=== PATIENT | female | born 1985 | race Caucasian/White ===

== ENCOUNTER → 2019-09-01 12:24 | Outpatient (CLI) | payer OTHER, SELFPAY ==
[2019-09-04 18:11] LABS: COVID19 Sendout Not Detected (Not Detected)
== END ==
PROVIDERS: Visit Provider Physician Assistant
DX: Z03.818 Encounter for observation for suspected exposure to other biological agents ruled out (principal)
CPT/HCPCS: 87635

== ENCOUNTER → 2019-09-01 12:49 | Outpatient (CLI) | payer OTHER, SELFPAY ==
[2019-09-01 15:55] LABS: Adenovirus F 40/41 Not Detected (Not Detect); Astrovirus Not Detected (Not Detect); Campylobacter Not Detected (Not Detect); Clostridium difficile toxin AB Not Detected (Not Detect); Cryptosporidium Not Detected (Not Detect); Cyclospora cayetanensis Not Detected (Not Detect); Entamoeba histolytica Not Detected (Not Detect); Enteroaggregative E.coli Not Detected (Not Detect); Enteropathogenic E.coli Not Detected (Not Detect); Enterotoxigenic E.coli It/st Not Detected (Not Detect); Giardia lamblia Not Detected (Not Detect); Norovirus GI/GII Not Detected (Not Detect); Plesiomonsa shigelloides Not Detected (Not Detect); Rotavirus A Not Detected (Not Detect); Salmonella Not Detected (Not Detect); Sapovirus Not Detected (Not Detect); Shiga-like toxin-prod E.coli Not Detected (Not Detect); Shigella/Enteroinvasive E.coli Not Detected (Not Detect); Vibrio Not Detected (Not Detect); Vibrio cholerae Not Detected (Not Detect); Yersinia enterocolitica Not Detected (Not Detect)
== END ==
PROVIDERS: Referring Provider Physician Assistant; Visit Provider Physician Assistant
DX: Z03.818 Encounter for observation for suspected exposure to other biological agents ruled out (principal); R19.7 Diarrhea, unspecified
CPT/HCPCS: 87507; 87635

== ENCOUNTER → 2019-09-08 07:45 | Outpatient (CLI) | payer OTHER, SELFPAY ==
--- NOTE | 2019-09-08 07:49 | DI.US.S_ITS ---
PROCEDURE: US ABDOMEN LIMITED INDICATIONS: EPIGASTRIC PAIN TECHNIQUE: Real-time scanning was performed of the abdominal and retroperitoneal organs, with image documentation. COMPARISON: None. FINDINGS: Liver: Liver is normal in size and homogeneous in echotexture. Gallbladder: The gallbladder appears normal without gallstones or signs of cholecystitis. Biliary ducts: Intrahepatic bile ducts are non-dilated. Extrahepatic bile duct caliber measures 5 mm. Normal is 6-7 mm or less in diameter, or 10 mm or less post-cholecystectomy. Pancreas: Visualized portions of the pancreas are sonographically normal. Spleen: Spleen is normal in size and homogeneous in echotexture. Right Kidney: A 1.5 cm simple cyst is seen in the interpolar region of the right kidney. No hydronephrosis or nephrolithiasis. IVC: Intrahepatic inferior vena cava is patent. Miscellaneous: No free fluid in the right upper quadrant. IMPRESSION: No acute abnormality is identified to account for the reported epigastric pain. No signs of cholelithiasis or cholecystitis. Simple right renal cyst measures up to 1.5 cm. Dictated by: Niall Langston M.D. on 09/08/2019 at 8:25 Approved by: Niall Langston M.D. on 09/08/2019 at 8:31
== END ==
PROVIDERS: Referring Provider Student in an Organized Health Care Education/Training Program; Visit Provider Student in an Organized Health Care Education/Training Program
DX: K21.9 Gastro-esophageal reflux disease without esophagitis (principal); R10.13 Epigastric pain; N28.1 Cyst of kidney, acquired
CPT/HCPCS: 76705

== ENCOUNTER → 2019-10-06 11:33 | Outpatient (CLI) | payer OTHER, SELFPAY ==
[2019-10-08 12:15] LABS: H. Pylori Antigen Stool Negative (Negative)
== END ==
PROVIDERS: PCP Registered Nurse Diabetes Educator; Referring Provider Physician Assistant; Visit Provider Physician Assistant
DX: K29.70 Gastritis, unspecified, without bleeding (principal)
CPT/HCPCS: 87338

== ENCOUNTER → 2020-01-25 16:27 | Outpatient (CLI) | payer OTHER, SELFPAY ==
[2020-01-25 16:50] LABS: COVID19 -Nasal RAPID Negative (Negative)
[2020-01-25 17:49] LABS: Influenza A - CEPHEID Flu A NEGATIVE (NEGATIVE); Influenza B - CEPHEID Flu B NEGATIVE (NEGATIVE)
== END ==
PROVIDERS: PCP Registered Nurse Diabetes Educator; Visit Provider Family Medicine
DX: J02.9 Acute pharyngitis, unspecified (principal); R19.7 Diarrhea, unspecified; R68.83 Chills (without fever); R05 Cough
CPT/HCPCS: 87502; 87635

== ENCOUNTER → 2020-05-20 16:05 | Outpatient (CLI) | payer OTHER, SELFPAY ==
[2020-05-20 17:05] LABS: Add Manual Diff / Slide Review NO; Basophils Absolute Auto 100 /uL (0-100); Basophils Percent Auto 0.9 % (0-2); Eosinophils Absolute Auto 400 /uL (0-450); Eosinophils Percent Auto 4.7 % (2-4); Hematocrit 40.4 % (36-46); Lymphocytes Absolute Auto 3000 /uL (1100-4500); Lymphocytes Percent Auto 32.5 % (25-40); Mean Corpuscular HGB Conc 34.6 % (30-36); Mean Corpuscular Hemoglobin 32.4 PG (26-34); Mean Corpuscular Volume 93.8 fL (80-100); Monocytes Absolute Auto 400 /uL (0-900); Monocytes Percent Auto 4.9 % (3-14); Neutrophils Absolute Auto 5200 /uL (1500-7000); Platelet Count 282 X10^3/uL (150-400); Red Blood Cell Count 4.31 X10^6/uL (4.0-5.2); Red Cell Distribution Width 12.5 % (11.6-14.8); White Blood Cell Count 9.1 X10^3/uL (4.5-11.0)
[2020-05-20 17:41] LABS: Free T4, Direct Thyroxine 1.05 ng/dL (0.78-2.19)
[2020-05-20 17:55] LABS: Thyroid Stimulating Hormone 1.41 uIU/mL (0.47-4.68)
[2020-05-21 06:37] LABS: Rubeola Measles IgG < 13.5 AU/mL (Immune >16.4); Varicella IgG Antibody 420 index (Immune >165)
[2020-05-21 09:36] LABS: Mumps Virus IgG Antibody 18.2 AU/mL (Immune >10.9)
== END ==
PROVIDERS: PCP Registered Nurse Diabetes Educator; Referring Provider Obstetrics & Gynecology; Visit Provider Obstetrics & Gynecology
DX: Z31.69 Encounter for other general counseling and advice on procreation (principal)
CPT/HCPCS: 36415; 84439; 84443; 85025; 86735; 86762; 86765; 86787

== ENCOUNTER → 2020-11-02 10:12 | Outpatient (CLI) | payer OTHER, SELFPAY ==
[2020-11-02 10:57] LABS: COVID19 -Nasal RAPID Negative (Negative)
== END ==
PROVIDERS: PCP Registered Nurse Diabetes Educator; Visit Provider Physician Assistant
DX: R05 Cough (principal); J02.9 Acute pharyngitis, unspecified; R51.9 Headache, unspecified; Z20.822 Contact with and (suspected) exposure to COVID-19
CPT/HCPCS: 87635

== ENCOUNTER → 2021-03-07 09:43 | Outpatient (CLI) | payer OTHER, SELFPAY | PROVIDERS: PCP Registered Nurse Diabetes Educator; Visit Provider Registered Nurse Diabetes Educator | DX: R30.0 Dysuria (principal) | CPT/HCPCS: 87086 ==

== ENCOUNTER → 2021-03-08 16:57 | Outpatient (CLI) | payer OTHER, SELFPAY ==
[2021-03-08 18:02] LABS: Bilirubin Urine UA NEGATIVE (NEGATIVE); Color Urine UA YELLOW; Glucose Urine UA NEGATIVE (Negative); Ketones Urine UA NEGATIVE (NEGATIVE); Leukocyte Esterase Urine UA NEGATIVE (NEGATIVE); Nitrite Urine UA NEGATIVE (Negative); Occult Blood Urine UA TRACE-LYSED (Negative); Protein Urine UA NEGATIVE (Negative); Specific Gravity Urine UA 1.015 (1.000-1.035); Urobilinogen Urine UA 0.2 E.U./dL (0.2)
[2021-03-08 18:13] LABS: Appearance Urine UA Slightly Cloudy; RBC Urine 0-1/HPF (0-5/HPF); Squamous Epithelial Cell Urine 5-10 /HPF (0-5/HPF); WBC Urine 5-10/HPF (0-5/HPF)
[2021-03-08 18:14] LABS: Amorphous Sediment Urine 1+; Bacteria Urine Moderate (10-30); Mucus Urine 1+ (Negative)
== END ==
PROVIDERS: PCP Registered Nurse Diabetes Educator; Referring Provider Registered Nurse Diabetes Educator; Visit Provider Registered Nurse Diabetes Educator
DX: N39.0 Urinary tract infection, site not specified (principal)
CPT/HCPCS: 81001; 87086

== ENCOUNTER → 2021-03-22 19:56 | Outpatient (ROUT) | payer OTHER, SELFPAY ==
[2021-03-22 20:03] LABS: Appearance Urine UA CLEAR; Bilirubin Urine UA NEGATIVE (NEGATIVE); Color Urine UA YELLOW; Glucose Urine UA TRACE g/dL (Negative); Ketones Urine UA NEGATIVE (NEGATIVE); Leukocyte Esterase Urine UA NEGATIVE (NEGATIVE); Nitrite Urine UA NEGATIVE (Negative); Occult Blood Urine UA NEGATIVE (Negative); Protein Urine UA NEGATIVE (Negative); Urobilinogen Urine UA 0.2 E.U./dL (0.2)
[2021-03-22 20:04] LABS: pH Urine UA 6.5 (4.5-8.0)
[2021-03-22 20:21] LABS: Amorphous Sediment Urine 2+; Bacteria Urine Many (>30); Culture Indicated Urine Cult Not Indicated; RBC Urine None Seen (0-5/HPF); Squamous Epithelial Cell Urine 10-30 /HPF (0-5/HPF); WBC Urine None Seen (0-5/HPF)
== END ==
PROVIDERS: PCP Registered Nurse Diabetes Educator; Visit Provider Registered Nurse Diabetes Educator
DX: R30.0 Dysuria (principal)
CPT/HCPCS: 81001; 87086

== ENCOUNTER → 2021-03-28 14:40 | Outpatient (CLI) | payer OTHER, SELFPAY ==
[2021-03-30 11:30] LABS: Chlamydia trachomatis Negative (Negative); Mycoplasma genitalium Negative (Negative); Neisseria gonorrhoeae Negative (Negative)
== END ==
PROVIDERS: PCP Registered Nurse Diabetes Educator; Visit Provider Registered Nurse Diabetes Educator
DX: N89.8 Other specified noninflammatory disorders of vagina (principal); Z11.3 Encounter for screening for infections with a predominantly sexual mode of transmission
CPT/HCPCS: 87210; 87220; 87491; 87563; 87591

== ENCOUNTER → 2021-04-18 10:44 | Outpatient (CLI) | payer OTHER, SELFPAY ==
[2021-04-18 11:39] LABS: Alanine Aminotransferase 28 IU/L (<35); Albumin 4.7 g/dL (3.5-5.0); Albumin Globulin Ratio 1.7 (1.0-2.8); Alkaline Phosphatase 49 U/L (38-126); Amylase 94 U/L (30-110); Aspartate Aminotransferase 39 IU/L (14-36); Bilirubin Total 0.6 mg/dL (0.2-1.3); Blood Urea Nitrogen 12 mg/dL (7-17); Calcium 9.3 mg/dL (8.4-10.2); Carbon Dioxide 24 mmol/L (22-32); Chloride 109 mmol/L (98-107); Estimated Glomerular Filt Rate > 60.0 mL/min (>60); Globulin 2.7 g/dL (1.7-4.1); Glucose 84 mg/dL (70-100); HEMOLYSIS 21 (0-50); Lipase 102 U/L (23-300); Potassium 3.8 mmol/L (3.4-5.1); Sodium 137 mmol/L (137-145); Total Protein 7.4 g/dL (6.3-8.2)
[2021-04-18 11:55] LABS: HCG Quantitative /Beta subunit < 2.4 mIU/mL
[2021-04-18 12:09] LABS: TSH w/ Reflex to FT4 0.85 uIU/mL (0.47-4.68)
[2021-04-18 12:24] LABS: Add Manual Diff / Slide Review NO; Basophils Absolute Auto 100 /uL (0-100); Basophils Percent Auto 0.8 % (0-2); Eosinophils Absolute Auto 300 /uL (0-450); Hematocrit 45.4 % (36-46); Hemoglobin 15.4 g/dL (12.0-16.0); Lymphocytes Absolute Auto 2400 /uL (1100-4500); Lymphocytes Percent Auto 30.8 % (25-40); Mean Corpuscular HGB Conc 33.8 % (30-36); Mean Corpuscular Hemoglobin 31.9 PG (26-34); Mean Corpuscular Volume 94.4 fL (80-100); Monocytes Absolute Auto 400 /uL (0-900); Monocytes Percent Auto 4.9 % (3-14); Neutrophils Absolute Auto 4600 /uL (1500-7000); Neutrophils Percent Auto 59.5 % (50-75); Platelet Count 305 X10^3/uL (150-400); Red Blood Cell Count 4.81 X10^6/uL (4.0-5.2); Red Cell Distribution Width 12.7 % (11.6-14.8); White Blood Cell Count 7.7 X10^3/uL (4.5-11.0)
[2021-04-18 13:08] LABS: Urine N gonorrhoeae NOT DETECTED
[2021-04-18 13:10] LABS: Urine Chlamydia NOT DETECTED
[2021-04-18 14:11] LABS: HIV 1 & 2 Ab/Ag 4th Gen Combo NEGATIVE (NEGATIVE)
[2021-04-19 06:19] LABS: HBsAg Screen Negative (Negative); Hepatitis A Antibody IgM Negative (Negative); Hepatitis B Core Antibody IgM Negative (Negative); Hepatitis C Antibody <0.1 s/co ratio (0.0-0.9); RPR Screen Non Reactive (Non Reactive)
== END ==
PROVIDERS: Family Medicine; PCP Registered Nurse Diabetes Educator; Referring Provider Registered Nurse Diabetes Educator; Visit Provider Registered Nurse Diabetes Educator
DX: R11.0 Nausea (principal); N39.0 Urinary tract infection, site not specified; Z11.3 Encounter for screening for infections with a predominantly sexual mode of transmission; R53.83 Other fatigue
CPT/HCPCS: 36415; 80053; 80074; 82150; 83690; 84443; 84702; 85025; 86592; 87389; 87491; 87591

== ENCOUNTER → 2021-04-21 15:38 | Outpatient (CLI) | payer OTHER, SELFPAY ==
[2021-04-21 16:50] LABS: Appearance Urine UA CLOUDY; Bilirubin Urine UA NEGATIVE (NEGATIVE); Color Urine UA YELLOW; Glucose Urine UA NEGATIVE (Negative); Ketones Urine UA NEGATIVE (NEGATIVE); Leukocyte Esterase Urine UA NEGATIVE (NEGATIVE); Nitrite Urine UA NEGATIVE (Negative); Occult Blood Urine UA NEGATIVE (Negative); Protein Urine UA NEGATIVE (Negative); Specific Gravity Urine UA 1.015 (1.000-1.035); Urobilinogen Urine UA 0.2 E.U./dL (0.2)
[2021-04-21 17:04] LABS: pH Urine UA 7.5 (4.5-8.0)
[2021-04-21 17:36] LABS: Amorphous Sediment Urine 3+; Bacteria Urine None Seen; Culture Indicated Urine Cult Not Indicated; RBC Urine None Seen (0-5/HPF); Squamous Epithelial Cell Urine 10-30 /HPF (0-5/HPF); WBC Urine None Seen (0-5/HPF)
[2021-04-23 08:36] LABS: Interpretation Negative (Negative)
== END ==
PROVIDERS: PCP Registered Nurse Diabetes Educator; Referring Provider Registered Nurse Diabetes Educator; Visit Provider Registered Nurse Diabetes Educator
DX: R11.0 Nausea (principal); R53.83 Other fatigue
CPT/HCPCS: 81001; 83013

== ENCOUNTER → 2021-04-26 07:49 | Outpatient (CLI) | payer OTHER, SELFPAY ==
--- NOTE | 2021-04-26 07:51 | DI.US.S_ITS ---
PROCEDURE: US ABDOMEN LIMITED INDICATIONS: ELEVATED AST; NAUSEA TECHNIQUE: Real-time focused scanning was performed of the abdomen, with image documentation. COMPARISON: [facility], , US ABDOMEN LIMITED, 09/08/2019, 8:03. FINDINGS: The liver is normal in size and echogenicity. The main portal vein measures 10 mm in diameter high-grade right 1st a stable vessel is radiology a I did not the The gallbladder appears normal without gallstones or gallbladder wall thickening. There is no pericholecystic fluid. Sonographic Antoine sign is negative. Intrahepatic and extrahepatic bile ducts are within normal limits in size. Common bile duct measures 5 mm in diameter. The visualized portions of the pancreas are within normal limits. A simple cyst is incidentally noted in the right kidney. IMPRESSION: No significant sonographic abnormality is seen in the right upper quadrant. Dictated by: Niall Langston M.D. on 04/26/2021 at 13:10 Approved by: Niall Langston M.D. on 04/26/2021 at 13:12
== END ==
PROVIDERS: PCP Registered Nurse Diabetes Educator; Referring Provider Registered Nurse Diabetes Educator; Visit Provider Registered Nurse Diabetes Educator
DX: R11.0 Nausea (principal); R74.8 Abnormal levels of other serum enzymes; N28.1 Cyst of kidney, acquired
CPT/HCPCS: 76705

== ENCOUNTER → 2021-05-12 15:13 | Outpatient (CLI) | payer OTHER, SELFPAY | PROVIDERS: PCP Registered Nurse Diabetes Educator; Visit Provider Nurse Practitioner Family | DX: R30.0 Dysuria (principal); N94.9 Unspecified condition associated with female genital organs and menstrual cycle | CPT/HCPCS: 87086; 87210 ==

== ENCOUNTER → 2021-06-06 11:35 | Outpatient (CLI) | payer OTHER, SELFPAY | PROVIDERS: PCP Registered Nurse Diabetes Educator; Visit Provider Physician Assistant | DX: R30.0 Dysuria (principal) | CPT/HCPCS: 87086; 87210 ==

== ENCOUNTER 2024-12-15 10:45 | Outpatient (RCR) | payer OTHER, SELFPAY ==
--- NOTE | 2024-06-23 16:00 | PT.OIE ---
Current Diagnoses Pelvic muscle wasting (06/23/24) Third degree perineal laceration during delivery, unspecified (06/23/24) Encounter for full-term uncomplicated delivery (06/23/24) Fecal urgency (06/23/24) Feeling of incomplete bladder emptying (06/23/24) Past Medical History (Last Reviewed 06/06/21 @ 12:21 by Florence López PA-C) Chronic migraine Diarrhea Routine screening for STI (sexually transmitted infection) Viral gastroenteritis Visit Care Team Role Provider Type Julia Gonzalez PA-C Family Provider [facility] Staff Nurse Primary Care Provider Specialty: Medical Address: [address] [place] [address], [id number] Email: Ernesto Lozano MD Attending Provider Non-Staff Referring Provider Specialty: MEDICAL RECORD CODER Address: [address] [place] [address], [id number] Email: Physical Therapy Initial Evaluation PT-OP-A Visit Information Start: 06/23/24 08:33 Freq: Status: Active Protocol: Document 06/23/24 14:30 [facility] (Rec: 06/23/24 14:48 [facility] [id number]) Out-Patient Physical Therapy Visit Information Visit Information Visit Type Initial Evaluation Visit Start Time 14:30 Visit Stop Time 15:15 Visit Number 1 PT-OP-B Current Condition Start: 06/23/24 08:33 Freq: Status: Active Protocol: Document 06/23/24 14:30 [facility] (Rec: 06/23/24 14:48 [facility] [id number]) Current Condition History of Current Condition Onset Date With childbirth 03/23/24 Current Complaints 3rd degree tear, difficulty fully voiding, bowel urgency and flattulance History of Current Condition Since giving she feels like she isn't able to fully void, she is noting frequency of voiding and its just a trickle. She notes with her bowels she has urgency and when she needs to have a bowel movement she needs to go right then. She also reports a great amount of uncontrolled flatulence During labor she had a catheter for the epidural, afterwards she could not void. 7 hours later she woke up with pressure and pain so she needed a spot catheter to void . Sidar also reports she did hemorrhage after giving but did not require a blood transfusion. She notes her stool consistency changes from diarrhea to constipation . She is no longer taking laxatives' but is taking Metamucil. She tries to drink 2 liters of water per day. She is voiding 2-3 times per night. She notes if her baby wakes her up she will then have to go. She also had BV and antibiotics really helped with that. Treatment Goals Patient/Caregiver Goals Treatment goals include improving pelvic floor strength, improving her ability to void, and decreasing bowel urgency and flattulance PT-OP-C Subjective Start: 06/23/24 08:33 Freq: Status: Active Protocol: Document 06/23/24 14:30 [facility] (Rec: 06/23/24 16:36 [facility] [id number]) Patient Questionnaires Pelvic Pain and Urgency/Frequency Patient Symptom Scale Pelvic Pain Score 14 PT-OP-I Pelvic Floor Start: 06/23/24 08:33 Freq: Status: Active Protocol: Document 06/23/24 14:30 [facility] (Rec: 06/23/24 16:36 [facility] [id number]) Pelvic Floor Assessment Urine Pelvic Floor Surgery No: 3A perineal tear with childbirth Urinary Symptoms Urge Sensation,Incomplete Emptying Bowel Bowel Surgery No: 3A perineal tear Bowel Symptoms Fecal Leakage,Uncontrolled Flatulence Other Bowel Symptoms bowel urgency with difficulty holding a bowel movement Pelvic Clock Pelvic Clock 12-3 Atrophy Pelvic Clock 3-6 Atrophy Pelvic Clock 6-9 Atrophy Pelvic Clock 9-12 Atrophy Perineal Descent Resting Present Bearing Present Contraction Ability Voluntary Contraction Weak Voluntary Relaxation Weak Manual Muscle Testing Left 2 Manual Muscle Testing Right 2 Manual Muscle Testing Anterior 2 Manual Muscle Testing Posterior 2 Muscle Endurance (Seconds) 2 Comments Pelvic Floor Comments tenderness at the left side of the perineum and tenderness over the left transverse perineal musculature, scar tissue tightness at the perineum with visible gapping PT-OP-Q Treatments Start: 06/23/24 08:33 Freq: Status: Active Protocol: Document 06/23/24 14:30 [facility] (Rec: 06/23/24 16:36 [facility] [id number]) Therapeutic Exercises Supine Exercises pelvic floor with adductor assist Side bilateral Reps/Minutes 10 reps holding 5 seconds and releasing x 10 seconds Comments HEP 1-2 time per day modified squat stretch Supine Exercise Name to work on releasing the tightness in the left Transverse perineal muscle Side bilateral Reps/Minutes hold 1-2 min PT-OP-T Assessment and Plan Start: 06/23/24 08:33 Freq: Status: Active Protocol: Document 06/23/24 14:30 [facility] (Rec: 06/24/24 13:02 [facility] [id number]) Physical Therapy Assessment Rehab Potential Rehabilitation Potential Excellent Evaluation Complexity Number of Personal Factors/Comorbidities 1-2 Number of Body Systems Impaired 3 Clinical Presentation at Evaluation Evolving Impairments Impairments Activity Tolerance,Pain,Soft Tissue Mobility,Strength,Tone Other Impairments inability to fully empty her bladder, urgency and frequency , fecal incontinence Goals 3 Impairment Decreased pelvic floor endurance Short Term Goal (STG) Sidra is able to sustain a pelvic floor contraction in supine x 10 seconds STG Duration 5 weeks Snf Goal (LTG) Sidra is able to sustain a pelvic floor contraction in sitting x 5 seconds or better LTG Duration 12 weeks 2 Impairment inabilty to fully empty the bladder with urinary and fecal urgency Short Term Goal (STG) Sidra is educated on toileting strategies to assist with fully emptying her bladder STG Duration 4 weeks Flame Hardener Goal (LTG) Sidra reports improved ability to void and she is able to increase her times between voids to 2 hours, she notes a overall decrease in fecal urgency LTG Duration 12 weeks 1 Impairment pelvic floor weakness Flame Hardener Goal (LTG) Sidra presents with improved strength of the pelvic floor by at least 1 muscle grade for improved support of her pelvic organs LTG Duration 12 weeks Assessment Summary Assessment Sidra is a 39 year old female referred to PT for pelvic floor rehab following a vaginal delivery with 3A degree perineal tear with delivery 03/23/24. Sidra reports difficulty fully voiding and both urinary as well as bowel urgency. She also reports that with bowel urgency she has noted some fecal incontinence. She also reports increased flattulance that is uncontrolled. Sidra is experiencing nocturia 2 times per night. With pelvic floor exam there is tenderness externally over the left transverse perineal muscle. There is scar tissue present at the perineum and pt presents with gapping at rest of the introitus due to scar tissue adhesion. She is weak throughout the levator ani musculature and tests 2/5 MM. She has very limited pelvic floor endurance. Sidra was started today with adductor assist for pelvic floor contraction and she tolerated this well. She is a good candidate for PT focusing on pelvic floor strengtheing, working to reduce scar tissue and encourage pts ability to pull in from the perineum as well as urge deference technique as well as toileting techniques to encourage full bladder emptying. Physical Therapy Plan Frequency and Duration Frequency of Treatment 1x/Week Duration of treatment (weeks) 12 Plan of Care Start Date 06/23/24 Plan of Care End Date 09/15/24 Therapeutic Interventions Therapeutic Interventions Home Exercise Program,Manual Therapy,Neuromuscular Re- education,Patient/Caregiver Education,Soft Tissue Mobilization,Therapeutic Exercises Modalities Biofeedback,Ultrasound Next Visit Focus/Plan Next Note Type Treatment Note Next Visit Plan begin US over the perineum and scar tissue and transverse perineum on the left, begin gentle scar tissue mobilization, EMG biofeedback for pelvic floor strength and endurance training
--- NOTE | 2024-07-07 17:33 | PT.OTN ---
Current Diagnoses Pelvic muscle wasting (07/07/24) Third degree perineal laceration during delivery, unspecified (07/07/24) Encounter for full-term uncomplicated delivery (07/07/24) Fecal urgency (07/07/24) Feeling of incomplete bladder emptying (07/07/24) Physical Therapy Treatment Note PT-OP-A Visit Information Start: 06/23/24 08:33 Freq: Status: Active Protocol: Document 07/07/24 13:49 [facility] (Rec: 07/07/24 13:56 [facility] [id number]) Out-Patient Physical Therapy Visit Information Visit Information Visit Type Treatment Note Visit Start Time 13:45 Visit Stop Time 14:30 Visit Number 2 PT-OP-B Current Condition Start: 06/23/24 08:33 Freq: Status: Active Protocol: Document 06/23/24 14:30 [facility] (Rec: 06/23/24 14:48 [facility] [id number]) Current Condition History of Current Condition Onset Date With childbirth 03/23/24 Current Complaints 3rd degree tear, difficulty fully voiding, bowel urgency and flattulance History of Current Condition Since giving she feels like she isn't able to fully void, she is noting frequency of voiding and its just a trickle. She notes with her bowels she has urgency and when she needs to have a bowel movement she needs to go right then. She also reports a great amount of uncontrolled flatulence During labor she had a catheter for the epidural, afterwards she could not void. 7 hours later she woke up with pressure and pain so she needed a spot catheter to void . Sidra also reports she did hemorrhage after giving but did not require a blood transfusion. She notes her stool consistency changes from diarrhea to constipation . She is no longer taking laxatives' but is taking Metamucil. She tries to drink 2 liters of water per day. She is voiding 2-3 times per night. She notes if her baby wakes her up she will then have to go. She also had BV and antibiotics really helped with that. Treatment Goals Patient/Caregiver Goals Treatment goals include improving pelvic floor strength, improving her ability to void, and decreasing bowel urgency and flattulance PT-OP-C Subjective Start: 06/23/24 08:33 Freq: Status: Active Protocol: Document 07/07/24 13:49 [facility] (Rec: 07/07/24 13:56 [facility] [id number]) OP-PT Subjective Patient Comments Patient Comments pt feels that she isn't fully emptying and it really bothers her. PT-OP-I Pelvic Floor Start: 06/23/24 08:33 Freq: Status: Active Protocol: Document 06/23/24 14:30 [facility] (Rec: 06/23/24 16:36 [facility] [id number]) Pelvic Floor Assessment Urine Pelvic Floor Surgery No: 3A perineal tear with childbirth Urinary Symptoms Urge Sensation,Incomplete Emptying Bowel Bowel Surgery No: 3A perineal tear Bowel Symptoms Fecal Leakage,Uncontrolled Flatulence Other Bowel Symptoms bowel urgency with difficulty holding a bowel movement Pelvic Clock Pelvic Clock 12-3 Atrophy Pelvic Clock 3-6 Atrophy Pelvic Clock 6-9 Atrophy Pelvic Clock 9-12 Atrophy Perineal Descent Resting Present Bearing Present Contraction Ability Voluntary Contraction Weak Voluntary Relaxation Weak Manual Muscle Testing Left 2 Manual Muscle Testing Right 2 Manual Muscle Testing Anterior 2 Manual Muscle Testing Posterior 2 Muscle Endurance (Seconds) 2 Comments Pelvic Floor Comments tenderness at the left side of the perineum and tenderness over the left transverse perineal musculature, scar tissue tightness at the perineum with visible gapping PT-OP-Q Treatments Start: 06/23/24 08:33 Freq: Status: Active Protocol: Document 07/07/24 14:09 [facility] (Rec: 07/07/24 14:31 [facility] [id number]) Therapeutic Exercises Supine Exercises pelvic floor isolations Reps/Minutes 10 reps Comments 6.8 and 24.6 pelvic floor with adductor assist Reps/Minutes 10 reps holding 10 seconds and relaxing 10 sec Comments 10.7 and max of 26.6 uv PT-OP-R Modalities Start: 06/23/24 08:33 Freq: Status: Active Protocol: Document 07/07/24 17:27 [facility] (Rec: 07/07/24 17:29 [facility] [id number]) Ultrasound Therapy Treatment over the perineum and left transverse perineum Patient Position Supine Coupling Medium Ultrasound Gel Applicator Size (cm2) 2 Frequency Setting (mHz) 1 Mode Setting Continuous Duty Cycle 100% Intensity Setting (w/cm2) 1.3 Comments good tolerance for ultrasound PT-OP-T Assessment and Plan Start: 06/23/24 08:33 Freq: Status: Active Protocol: Document 07/07/24 13:45 [facility] (Rec: 07/07/24 17:32 [facility] [id number]) Physical Therapy Assessment Assessment Summary Assessment I started Sidra today with ultrasound over the perineum and transverse perineum and worked on scar tissue, EMG biofeedback was initiated working on pelvic floor endurance contractions and isolations. SHe does better with adductor assist but was able to isolate some today. She is concerned regarding her voiding as she feels she is not voiding all the way and this creates urgency. We will introduce the urge deference technique next visit and I feel this will improve as pelvic floor strength improves. Physical Therapy Plan Frequency and Duration Frequency of Treatment 1x/Week Duration of treatment (weeks) 12 Plan of Care Start Date 06/23/24 Plan of Care End Date 09/15/24 Therapeutic Interventions Therapeutic Interventions Home Exercise Program,Manual Therapy,Neuromuscular Re- education,Patient/Caregiver Education,Soft Tissue Mobilization,Therapeutic Exercises Modalities Biofeedback,Ultrasound Next Visit Focus/Plan Next Note Type Treatment Note Next Visit Plan check in with how Sidra did with ultrasound, teach urge deference technique, continue with pelvic floor endurance training
--- NOTE | 2024-07-14 09:17 | PT.OTN ---
Current Diagnoses Pelvic muscle wasting (07/14/24) Third degree perineal laceration during delivery, unspecified (07/14/24) Encounter for full-term uncomplicated delivery (07/14/24) Fecal urgency (07/14/24) Feeling of incomplete bladder emptying (07/14/24) Physical Therapy Treatment Note PT-OP-A Visit Information Start: 06/23/24 08:33 Freq: Status: Active Protocol: Document 07/14/24 08:14 [facility] (Rec: 07/14/24 08:25 [facility] [id number]) Out-Patient Physical Therapy Visit Information Visit Information Visit Type Treatment Note Visit Start Time 08:15 Visit Stop Time 09:00 Visit Number 3 PT-OP-B Current Condition Start: 06/23/24 08:33 Freq: Status: Active Protocol: Document 06/23/24 14:30 [facility] (Rec: 06/23/24 14:48 [facility] [id number]) Current Condition History of Current Condition Onset Date With childbirth 03/23/24 Current Complaints 3rd degree tear, difficulty fully voiding, bowel urgency and flattulance History of Current Condition Since giving she feels like she isn't able to fully void, she is noting frequency of voiding and its just a trickle. She notes with her bowels she has urgency and when she needs to have a bowel movement she needs to go right then. She also reports a great amount of uncontrolled flatulence During labor she had a catheter for the epidural, afterwards she could not void. 7 hours later she woke up with pressure and pain so she needed a spot catheter to void . Sidra also reports she did hemorrhage after giving but did not require a blood transfusion. She notes her stool consistency changes from diarrhea to constipation . She is no longer taking laxatives' but is taking Metamucil. She tries to drink 2 liters of water per day. She is voiding 2-3 times per night. She notes if her baby wakes her up she will then have to go. She also had BV and antibiotics really helped with that. Treatment Goals Patient/Caregiver Goals Treatment goals include improving pelvic floor strength, improving her ability to void, and decreasing bowel urgency and flattulance PT-OP-C Subjective Start: 06/23/24 08:33 Freq: Status: Active Protocol: Document 07/14/24 08:14 [facility] (Rec: 07/14/24 08:25 [facility] [id number]) OP-PT Subjective Patient Comments Patient Comments pt notes she had a bad night with her bladder, she woke up at midnight and then again at 3 and then at 5, pt notes before that it did feel alittle better, she has also been constipated the past 2 days PT-OP-I Pelvic Floor Start: 06/23/24 08:33 Freq: Status: Active Protocol: Document 06/23/24 14:30 [facility] (Rec: 06/23/24 16:36 [facility] [id number]) Pelvic Floor Assessment Urine Pelvic Floor Surgery No: 3A perineal tear with childbirth Urinary Symptoms Urge Sensation,Incomplete Emptying Bowel Bowel Surgery No: 3A perineal tear Bowel Symptoms Fecal Leakage,Uncontrolled Flatulence Other Bowel Symptoms bowel urgency with difficulty holding a bowel movement Pelvic Clock Pelvic Clock 12-3 Atrophy Pelvic Clock 3-6 Atrophy Pelvic Clock 6-9 Atrophy Pelvic Clock 9-12 Atrophy Perineal Descent Resting Present Bearing Present Contraction Ability Voluntary Contraction Weak Voluntary Relaxation Weak Manual Muscle Testing Left 2 Manual Muscle Testing Right 2 Manual Muscle Testing Anterior 2 Manual Muscle Testing Posterior 2 Muscle Endurance (Seconds) 2 Comments Pelvic Floor Comments tenderness at the left side of the perineum and tenderness over the left transverse perineal musculature, scar tissue tightness at the perineum with visible gapping PT-OP-Q Treatments Start: 06/23/24 08:33 Freq: Status: Active Protocol: Document 07/14/24 08:14 [facility] (Rec: 07/14/24 08:25 [facility] [id number]) Therapeutic Exercises Supine Exercises hooklying clam shell with resistance Reps/Minutes x 10 reps holding 5 seconds pelvic floor isolations Reps/Minutes 10 reps Comments 13.3 uv average and max 38.1 pelvic floor with adductor assist Reps/Minutes 10 reps holding 10 seconds and relaxing 10 sec Comments 12.6 and 53.6 max modified squat stretch Supine Exercise Name to work on releasing the tightness in the left Transverse perineal muscle Side bilateral Reps/Minutes hold 1-2 min Other Exercises sit to stand with pelvic floor engagement Reps/Minutes pt to work on each time she goes from sitting to standing Comments difficult to hinge from the hips PT-OP-R Modalities Start: 06/23/24 08:33 Freq: Status: Active Protocol: Document 07/14/24 08:15 [facility] (Rec: 07/14/24 09:16 [facility] [id number]) Ultrasound Therapy Treatment over the perineum and left transverse perineum Patient Position Supine Coupling Medium Ultrasound Gel Applicator Size (cm2) 2 Frequency Setting (mHz) 1 Mode Setting Continuous Duty Cycle 100% Intensity Setting (w/cm2) 1.3 Comments good tolerance for ultrasound PT-OP-T Assessment and Plan Start: 06/23/24 08:33 Freq: Status: Active Protocol: Document 07/14/24 08:15 [facility] (Rec: 07/14/24 09:16 [facility] [id number]) Physical Therapy Assessment Rehab Potential Rehabilitation Potential Excellent Impairments Impairments Activity Tolerance,Pain,Soft Tissue Mobility,Strength,Tone Other Impairments inability to fully empty her bladder, urgency and frequency , fecal incontinence Goals 3 Impairment Decreased pelvic floor endurance Short Term Goal (STG) Sidra is able to sustain a pelvic floor contraction in supine x 10 seconds STG Duration 5 weeks [facility] Care Goal (LTG) Sidra is able to sustain a pelvic floor contraction in sitting x 5 seconds or better LTG Duration 12 weeks 2 Impairment inabilty to fully empty the bladder with urinary and fecal urgency Short Term Goal (STG) Sidra is educated on toileting strategies to assist with fully emptying her bladder STG Duration 4 weeks [facility] Care Goal (LTG) Sidra reports improved ability to void and she is able to increase her times between voids to 2 hours, she notes a overall decrease in fecal urgency LTG Duration 12 weeks 1 Impairment pelvic floor weakness Senior Care Goal (LTG) Sidra presents with improved strength of the pelvic floor by at least 1 muscle grade for improved support of her pelvic organs LTG Duration 12 weeks Assessment Summary Assessment Sidra did better this visit with pelvic floor recruitment and endurance, her average increased from 6 to 12 uv average She mentions she is still feeling the urgency especially at night and is seeing her obgyn today for possible estrogen cream, I did educate her on urge deference technique and bladder retraining today She mentions her hips feel weak and I did start her with hip ER with theraband and sit- stand with pelvic floor engagement. She has difficulty with hip hinge so more time needs to be spent on squat form Physical Therapy Plan Frequency and Duration Frequency of Treatment 1x/Week Duration of treatment (weeks) 12 Plan of Care Start Date 06/23/24 Plan of Care End Date 09/15/24 Therapeutic Interventions Therapeutic Interventions Home Exercise Program,Manual Therapy,Neuromuscular Re- education,Patient/Caregiver Education,Soft Tissue Mobilization,Therapeutic Exercises Modalities Biofeedback,Ultrasound Next Visit Focus/Plan Next Note Type Treatment Note Next Visit Plan review squat form and how pt is doing with sit to stand, continue with pelvic floor strength and endurance training
--- NOTE | 2024-07-30 10:59 | PT.OTN ---
Current Diagnoses Pelvic muscle wasting (07/30/24) Third degree perineal laceration during delivery, unspecified (07/30/24) Encounter for full-term uncomplicated delivery (07/30/24) Fecal urgency (07/30/24) Feeling of incomplete bladder emptying (07/30/24) Physical Therapy Treatment Note PT-OP-A Visit Information Start: 06/23/24 08:33 Freq: Status: Active Protocol: Document 07/30/24 09:45 [facility] (Rec: 07/30/24 10:46 [facility] [id number]) Out-Patient Physical Therapy Visit Information Visit Information Visit Type Progress Note Visit Start Time 09:45 Visit Stop Time 10:30 Visit Number 4 PT-OP-B Current Condition Start: 06/23/24 08:33 Freq: Status: Active Protocol: Document 06/23/24 14:30 [facility] (Rec: 06/23/24 14:48 [facility] [id number]) Current Condition History of Current Condition Onset Date With childbirth 03/23/24 Current Complaints 3rd degree tear, difficulty fully voiding, bowel urgency and flattulance History of Current Since giving she feels like she isn't able to Condition fully void, she is noting frequency of voiding and its just a trickle. She notes with her bowels she has urgency and when she needs to have a bowel movement she needs to go right then. She also reports a great amount of uncontrolled flatulence During labor she had a catheter for the epidural, afterwards she could not void. 7 hours later she woke up with pressure and pain so she needed a spot catheter to void. Sidra also reports she did hemorrhage after giving but did not require a blood transfusion. She notes her stool consistency changes from diarrhea to constipation. She is no longer taking laxatives' but is taking Metamucil. She tries to drink 2 liters of water per day. She is voiding 2-3 times per night. She notes if her baby wakes her up she will then have to go. She also had BV and antibiotics really helped with that. Treatment Goals Patient/Caregiver Treatment goals include improving pelvic floor strength Goals , improving her ability to void, and decreasing bowel urgency and flattulance PT-OP-C Subjective Start: 06/23/24 08:33 Freq: Status: Active Protocol: Document 07/30/24 09:48 [facility] (Rec: 07/30/24 10:41 [facility] [id number]) OP-PT Subjective Patient Comments Patient Comments pt notes urgency is not as bad, she had her cycle and she is not having as much of the irritation with her bladder PT-OP-I Pelvic Floor Start: 06/23/24 08:33 Freq: Status: Active Protocol: Document 06/23/24 14:30 [facility] (Rec: 06/23/24 16:36 [facility] [id number]) Pelvic Floor Assessment Urine Pelvic Floor Surgery No: 3A perineal tear with childbirth Urinary Symptoms Urge Sensation,Incomplete Emptying Bowel Bowel Surgery No: 3A perineal tear Bowel Symptoms Fecal Leakage,Uncontrolled Flatulence Other Bowel Symptoms bowel urgency with difficulty holding a bowel movement Pelvic Clock Pelvic Clock 12-3 Atrophy Pelvic Clock 3-6 Atrophy Pelvic Clock 6-9 Atrophy Pelvic Clock 9-12 Atrophy Perineal Descent Resting Present Bearing Present Contraction Ability Voluntary Weak Contraction Voluntary Relaxation Weak Manual Muscle 2 Testing Left Manual Muscle 2 Testing Right Manual Muscle 2 Testing Anterior Manual Muscle 2 Testing Posterior Muscle Endurance ( 2 Seconds) Comments Pelvic Floor tenderness at the left side of the perineum and Comments tenderness over the left transverse perineal musculature, scar tissue tightness at the perineum with visible gapping PT-OP-Q Treatments Start: 06/23/24 08:33 Freq: Status: Active Protocol: Document 07/30/24 09:48 [facility] (Rec: 07/30/24 10:41 [facility] [id number]) Therapeutic Exercises Other Exercises cat cow Reps/Minutes 10 reps quaduped TA Reps/Minutes x 10 reps Comments exhale sit to stand with pelvic floor engagement Other Exercise Name time spent cueing sitting on sitting bones Reps/Minutes x 5 reps with cues to hinge at hips Comments pt tends to sit tucked under in a posterior pelvic tilt Manual Therapy Treatment Consent Patient gave verbal Yes consent for manual treatment Soft Tissue Mobilization MFR over the TPM and attachments to the ischium Body Location left side Mobilization Type Myofascial Release Comments worked on release of the right TPM and attachments to the ischium following ultrasound. Sidra could tell that this loosened with treatment. PT-OP-R Modalities Start: 06/23/24 08:33 Freq: Status: Active Protocol: Document 07/30/24 09:45 [facility] (Rec: 07/30/24 10:51 [facility] [id number]) Ultrasound Therapy Treatment over the perineum and left transverse perineum Patient Position Supine Coupling Medium Ultrasound Gel Applicator Size (cm2 2 ) Frequency Setting ( 1 mHz) Mode Setting Continuous Duty Cycle 100% Intensity Setting (w 1.3 /cm2) Comments good tolerance for ultrasound x 8 min PT-OP-T Assessment and Plan Start: 06/23/24 08:33 Freq: Status: Active Protocol: Document 07/30/24 09:48 [facility] (Rec: 07/30/24 10:41 [facility] [id number]) Physical Therapy Assessment Goals 3 Impairment Decreased pelvic floor endurance Short Term Goal (STG Sidra is able to sustain a pelvic floor contraction ) in supine x 10 seconds STG Duration 5 weeks Internet Assessor Goal (LTG) Sidra is able to sustain a pelvic floor contraction in sitting x 5 seconds or better LTG Duration 12 weeks 2 Impairment inabilty to fully empty the bladder with urinary and fecal urgency Short Term Goal (STG Sidra is educated on toileting strategies to assist ) with fully emptying her bladder STG Duration 4 weeks Skilled Nursing Goal (LTG) Sidra reports improved ability to void and she is able to increase her times between voids to 2 hours, she notes a overall decrease in fecal urgency LTG Duration 12 weeks 1 Impairment pelvic floor weakness Internet Assessor Goal (LTG) Sidra presents with improved strength of the pelvic floor by at least 1 muscle grade for improved support of her pelvic organs LTG Duration 12 weeks Assessment Summary Assessment Sidra is doing better with decreased c/o urgency and tissue irritation. I did do ultrasound again today over the perineum and left TPM. She is able to pull up from the perineum better now. I stated her on cat cow to help with pelvic mobility as she likes to sit in a posterior pelvic tilt. I also started TA isolations in quadruped. She has difficulty coordinating her breath with TA contractions. She would benefit from body mechanics training for lifting her baby and continued work on finding neutral spine and sitting on sits bones while sitting. SHe goes back to work in 2 weeks and will be sitting but does have a ball to use Physical Therapy Plan Frequency and Duration Frequency of 1x/Week Treatment Duration of 12 treatment (weeks) Plan of Care Start 06/23/24 Date Plan of Care End 09/15/24 Date Therapeutic Interventions Therapeutic Home Exercise Program,Manual Therapy,Neuromuscular Re- Interventions education,Patient/Caregiver Education,Soft Tissue Mobilization,Therapeutic Exercises Modalities Biofeedback,Ultrasound Next Visit Focus/Plan Next Note Type Treatment Note Next Visit Plan begin working on down dog as a way to help hinge at the hips, happy baby and desean pose, review TA and cat cow.
--- NOTE | 2024-08-06 11:53 | PT.OTN ---
Current Diagnoses Pelvic muscle wasting (08/06/24) Third degree perineal laceration during delivery, unspecified (08/06/24) Encounter for full-term uncomplicated delivery (08/06/24) Fecal urgency (08/06/24) Feeling of incomplete bladder emptying (08/06/24) Physical Therapy Treatment Note PT-OP-A Visit Information Start: 06/23/24 08:33 Freq: Status: Active Protocol: Document 08/06/24 10:48 [facility] (Rec: 08/06/24 11:53 [facility] [id number]) Out-Patient Physical Therapy Visit Information Visit Information Visit Type Treatment Note Visit Start Time 10:50 Visit Stop Time 11:30 Visit Number 5 PT-OP-B Current Condition Start: 06/23/24 08:33 Freq: Status: Active Protocol: Document 06/23/24 14:30 [facility] (Rec: 06/23/24 14:48 [facility] [id number]) Current Condition History of Current Condition Onset Date With childbirth 03/23/24 Current Complaints 3rd degree tear, difficulty fully voiding, bowel urgency and flattulance History of Current Since giving she feels like she isn't able to Condition fully void, she is noting frequency of voiding and its just a trickle. She notes with her bowels she has urgency and when she needs to have a bowel movement she needs to go right then. She also reports a great amount of uncontrolled flatulence During labor she had a catheter for the epidural, afterwards she could not void. 7 hours later she woke up with pressure and pain so she needed a spot catheter to void. Sidra also reports she did hemorrhage after giving but did not require a blood transfusion. She notes her stool consistency changes from diarrhea to constipation. She is no longer taking laxatives' but is taking Metamucil. She tries to drink 2 liters of water per day. She is voiding 2-3 times per night. She notes if her baby wakes her up she will then have to go. She also had BV and antibiotics really helped with that. Treatment Goals Patient/Caregiver Treatment goals include improving pelvic floor strength Goals , improving her ability to void, and decreasing bowel urgency and flattulance PT-OP-C Subjective Start: 06/23/24 08:33 Freq: Status: Active Protocol: Document 08/06/24 10:48 [facility] (Rec: 08/06/24 11:53 [facility] [id number]) OP-PT Subjective Patient Comments Patient Comments she only got up 1 time last night to empty her bladder, Sidra reports she goes back to work next week. PT-OP-I Pelvic Floor Start: 06/23/24 08:33 Freq: Status: Active Protocol: Document 06/23/24 14:30 [facility] (Rec: 06/23/24 16:36 [facility] [id number]) Pelvic Floor Assessment Urine Pelvic Floor Surgery No: 3A perineal tear with childbirth Urinary Symptoms Urge Sensation,Incomplete Emptying Bowel Bowel Surgery No: 3A perineal tear Bowel Symptoms Fecal Leakage,Uncontrolled Flatulence Other Bowel Symptoms bowel urgency with difficulty holding a bowel movement Pelvic Clock Pelvic Clock 12-3 Atrophy Pelvic Clock 3-6 Atrophy Pelvic Clock 6-9 Atrophy Pelvic Clock 9-12 Atrophy Perineal Descent Resting Present Bearing Present Contraction Ability Voluntary Weak Contraction Voluntary Relaxation Weak Manual Muscle 2 Testing Left Manual Muscle 2 Testing Right Manual Muscle 2 Testing Anterior Manual Muscle 2 Testing Posterior Muscle Endurance ( 2 Seconds) Comments Pelvic Floor tenderness at the left side of the perineum and Comments tenderness over the left transverse perineal musculature, scar tissue tightness at the perineum with visible gapping PT-OP-Q Treatments Start: 06/23/24 08:33 Freq: Status: Active Protocol: Document 08/06/24 10:48 [facility] (Rec: 08/06/24 11:53 [facility] [id number]) Therapeutic Exercises Supine Exercises supine over the ball stretch Reps/Minutes hold 1-2 min to stretch anterior chest pelvic floor isolations Reps/Minutes 10 reps holding 10 sec and resting 10 sec Comments 8.3 and max of 22.0 pelvic floor with adductor assist Reps/Minutes 10 reps holding 10 seconds and relaxing 10 sec Sitting Exercises seated ball pelvic tilts, lateral tilts, circles Reps/Minutes 10 each direction Standing Exercises standign shoulder ER with band Reps/Minutes x 10 reps level 2 TB horizontal abduction with TB Equipment Used level 2 TB Reps/Minutes x 10 reps Neuro Re-Education Treatment Other Activities NMES for the pelvic floor Details with vaginal sensor Comments pt was able to feel sensation at level 9 and then went to level 12 and could feel the right side mostly at first. After turning it up to 13 she could feel more of the center of the pelvic floor PT-OP-R Modalities Start: 06/23/24 08:33 Freq: Status: Active Protocol: Document 07/30/24 09:45 [facility] (Rec: 07/30/24 10:51 [facility] [id number]) Ultrasound Therapy Treatment over the perineum and left transverse perineum Patient Position Supine Coupling Medium Ultrasound Gel Applicator Size (cm2 2 ) Frequency Setting ( 1 mHz) Mode Setting Continuous Duty Cycle 100% Intensity Setting (w 1.3 /cm2) Comments good tolerance for ultrasound x 8 min PT-OP-T Assessment and Plan Start: 06/23/24 08:33 Freq: Status: Active Protocol: Document 08/06/24 10:48 [facility] (Rec: 08/06/24 11:53 [facility] [id number]) Physical Therapy Assessment Impairments Impairments Activity Tolerance,Pain,Soft Tissue Mobility,Strength, Tone Other Impairments inability to fully empty her bladder, urgency and frequency, fecal incontinence Goals 3 Impairment Decreased pelvic floor endurance Short Term Goal (STG Sidra is able to sustain a pelvic floor contraction ) in supine x 10 seconds STG Duration 5 weeks Auto Brake Mechanic Goal (LTG) Sidra is able to sustain a pelvic floor contraction in sitting x 5 seconds or better LTG Duration 12 weeks 2 Impairment inabilty to fully empty the bladder with urinary and fecal urgency Short Term Goal (STG Sidra is educated on toileting strategies to assist ) with fully emptying her bladder goal met STG Duration 4 weeks Auto Brake Mechanic Goal (LTG) Sidra reports improved ability to void and she is able to increase her times between voids to 2 hours, she notes a overall decrease in fecal urgency pt is now waking up 1 time to void, she hasn't felt the fecal urgency as much but she does note she has always been near a toilet so hasn't had to test that much LTG Duration 12 weeks 1 Impairment pelvic floor weakness Detention Goal (LTG) Sidra presents with improved strength of the pelvic floor by at least 1 muscle grade for improved support of her pelvic organs LTG Duration 12 weeks Assessment Summary Assessment I did a trial of NMES for the pelvic floor with sidra today and she tolerated this well. SHe was only able to feel the right side initially and then as time went on she was able to feel the anterior pelvic floor. She was fatigued afterwards when we worked on pelvic floor endurance holds. I also started her with some postural exercises as she will be returning to work next week and this involves sitting at her desk. Physical Therapy Plan Frequency and Duration Frequency of 1x/Week Treatment Duration of 12 treatment (weeks) Plan of Care Start 06/23/24 Date Plan of Care End 09/15/24 Date Therapeutic Interventions Therapeutic Home Exercise Program,Manual Therapy,Neuromuscular Re- Interventions education,Patient/Caregiver Education,Soft Tissue Mobilization,Therapeutic Exercises Modalities Biofeedback,Ultrasound Next Visit Focus/Plan Next Note Type Treatment Note Next Visit Plan review all exercises next visit and check in with how Sidra felt after NMES if she felt it helped with improved pelvic floor sensation
--- NOTE | 2024-08-25 16:12 | PT.OTN ---
Current Diagnoses Pelvic muscle wasting (08/25/24) Third degree perineal laceration during delivery, unspecified (08/25/24) Encounter for full-term uncomplicated delivery (08/25/24) Fecal urgency (08/25/24) Feeling of incomplete bladder emptying (08/25/24) Physical Therapy Treatment Note PT-OP-A Visit Information Start: 06/23/24 08:33 Freq: Status: Active Protocol: Document 08/25/24 15:09 [facility] (Rec: 08/25/24 16:11 [facility] [id number]) Out-Patient Physical Therapy Visit Information Visit Information Visit Type Treatment Note Visit Start Time 15:15 Visit Stop Time 16:00 Visit Number 6 PT-OP-B Current Condition Start: 06/23/24 08:33 Freq: Status: Active Protocol: Document 06/23/24 14:30 [facility] (Rec: 06/23/24 14:48 [facility] [id number]) Current Condition History of Current Condition Onset Date With childbirth 03/23/24 Current Complaints 3rd degree tear, difficulty fully voiding, bowel urgency and flattulance History of Current Since giving she feels like she isn't able to Condition fully void, she is noting frequency of voiding and its just a trickle. She notes with her bowels she has urgency and when she needs to have a bowel movement she needs to go right then. She also reports a great amount of uncontrolled flatulence During labor she had a catheter for the epidural, afterwards she could not void. 7 hours later she woke up with pressure and pain so she needed a spot catheter to void. Sidra also reports she did hemorrhage after giving but did not require a blood transfusion. She notes her stool consistency changes from diarrhea to constipation. She is no longer taking laxatives' but is taking Metamucil. She tries to drink 2 liters of water per day. She is voiding 2-3 times per night. She notes if her baby wakes her up she will then have to go. She also had BV and antibiotics really helped with that. Treatment Goals Patient/Caregiver Treatment goals include improving pelvic floor strength Goals , improving her ability to void, and decreasing bowel urgency and flattulance PT-OP-C Subjective Start: 06/23/24 08:33 Freq: Status: Active Protocol: Document 08/25/24 15:09 [facility] (Rec: 08/25/24 16:11 [facility] [id number]) OP-PT Subjective Patient Comments Patient Comments pt returns to work and then got covid so has been recovery She still doesn't feel that she is fully emptying her bowels and this is her chief complaint at this time urgency is better overall PT-OP-I Pelvic Floor Start: 06/23/24 08:33 Freq: Status: Active Protocol: Document 06/23/24 14:30 [facility] (Rec: 06/23/24 16:36 [facility] [id number]) Pelvic Floor Assessment Urine Pelvic Floor Surgery No: 3A perineal tear with childbirth Urinary Symptoms Urge Sensation,Incomplete Emptying Bowel Bowel Surgery No: 3A perineal tear Bowel Symptoms Fecal Leakage,Uncontrolled Flatulence Other Bowel Symptoms bowel urgency with difficulty holding a bowel movement Pelvic Clock Pelvic Clock 12-3 Atrophy Pelvic Clock 3-6 Atrophy Pelvic Clock 6-9 Atrophy Pelvic Clock 9-12 Atrophy Perineal Descent Resting Present Bearing Present Contraction Ability Voluntary Weak Contraction Voluntary Relaxation Weak Manual Muscle 2 Testing Left Manual Muscle 2 Testing Right Manual Muscle 2 Testing Anterior Manual Muscle 2 Testing Posterior Muscle Endurance ( 2 Seconds) Comments Pelvic Floor tenderness at the left side of the perineum and Comments tenderness over the left transverse perineal musculature, scar tissue tightness at the perineum with visible gapping PT-OP-Q Treatments Start: 06/23/24 08:33 Freq: Status: Active Protocol: Document 08/25/24 15:09 [facility] (Rec: 08/25/24 16:11 [facility] [id number]) Therapeutic Exercises Supine Exercises templates for coordination and pelvic floor eccentric control Reps/Minutes x 5 minutes hooklying clam shell with resistance Reps/Minutes x 10 reps holding 5 seconds pelvic floor isolations Supine Exercise Name able to relax to baseline Reps/Minutes 10 reps holding 10 sec and resting 10 sec Comments 10.9 and 22 pelvic floor with adductor assist Reps/Minutes 10 reps holding 10 seconds and relaxing 10 sec PT-OP-R Modalities Start: 06/23/24 08:33 Freq: Status: Active Protocol: Document 07/30/24 09:45 [facility] (Rec: 07/30/24 10:51 [facility] [id number]) Ultrasound Therapy Treatment over the perineum and left transverse perineum Patient Position Supine Coupling Medium Ultrasound Gel Applicator Size (cm2 2 ) Frequency Setting ( 1 mHz) Mode Setting Continuous Duty Cycle 100% Intensity Setting (w 1.3 /cm2) Comments good tolerance for ultrasound x 8 min PT-OP-T Assessment and Plan Start: 06/23/24 08:33 Freq: Status: Active Protocol: Document 08/25/24 15:09 [facility] (Rec: 08/25/24 16:11 [facility] [id number]) Physical Therapy Assessment Goals 3 Impairment Decreased pelvic floor endurance Short Term Goal (STG Sidra is able to sustain a pelvic floor contraction ) in supine x 10 seconds STG Duration 5 weeks Legal Financial Specialist Goal (LTG) Sidra is able to sustain a pelvic floor contraction in sitting x 5 seconds or better LTG Duration 12 weeks 2 Impairment inabilty to fully empty the bladder with urinary and fecal urgency Short Term Goal (STG Sidra is educated on toileting strategies to assist ) with fully emptying her bladder goal met STG Duration 4 weeks Legal Financial Specialist Goal (LTG) Sidra reports improved ability to void and she is able to increase her times between voids to 2 hours, she notes a overall decrease in fecal urgency pt is now waking up 1 time to void, she hasn't felt the fecal urgency as much but she does note she has always been near a toilet so hasn't had to test that much LTG Duration 12 weeks 1 Impairment pelvic floor weakness Halfway Goal (LTG) Sidra presents with improved strength of the pelvic floor by at least 1 muscle grade for improved support of her pelvic organs LTG Duration 12 weeks Assessment Summary Assessment Sidra demonstrated improved endurance of the pelvic floor today as compared to last visit, she still has a much higher max contraction as compared to her average contraction so there is still room for improvement. Urinary urgency has improved and her chief complaint at this time is not being able to fully empty her bowels. Physical Therapy Plan Frequency and Duration Frequency of 1x/Week Treatment Duration of 12 treatment (weeks) Plan of Care Start 06/23/24 Date Plan of Care End 09/15/24 Date Therapeutic Interventions Therapeutic Home Exercise Program,Manual Therapy,Neuromuscular Re- Interventions education,Patient/Caregiver Education,Soft Tissue Mobilization,Therapeutic Exercises Modalities Biofeedback,Ultrasound Next Visit Focus/Plan Next Note Type Progress Note Next Visit Plan review all exercises for next visit including templates for eccentric control. review stretches and TA isolation in quadruped, consider thoracic rotations to assist with bowel movements
--- NOTE | 2024-09-01 16:22 | PT.OTN ---
Current Diagnoses Pelvic muscle wasting (09/01/24) Third degree perineal laceration during delivery, unspecified (09/01/24) Encounter for full-term uncomplicated delivery (09/01/24) Fecal urgency (09/01/24) Feeling of incomplete bladder emptying (09/01/24) Physical Therapy Treatment Note PT-OP-A Visit Information Start: 06/23/24 08:33 Freq: Status: Active Protocol: Document 09/01/24 15:28 [facility] (Rec: 09/01/24 16:22 [facility] [id number]) Out-Patient Physical Therapy Visit Information Visit Information Visit Type Progress Note Visit Start Time 15:15 Visit Stop Time 16:00 Visit Number 7 PT-OP-B Current Condition Start: 06/23/24 08:33 Freq: Status: Active Protocol: Document 06/23/24 14:30 [facility] (Rec: 06/23/24 14:48 [facility] [id number]) Current Condition History of Current Condition Onset Date With childbirth 03/23/24 Current Complaints 3rd degree tear, difficulty fully voiding, bowel urgency and flattulance History of Current Since giving she feels like she isn't able to Condition fully void, she is noting frequency of voiding and its just a trickle. She notes with her bowels she has urgency and when she needs to have a bowel movement she needs to go right then. She also reports a great amount of uncontrolled flatulence During labor she had a catheter for the epidural, afterwards she could not void. 7 hours later she woke up with pressure and pain so she needed a spot catheter to void. Sidra also reports she did hemorrhage after giving but did not require a blood transfusion. She notes her stool consistency changes from diarrhea to constipation. She is no longer taking laxatives' but is taking Metamucil. She tries to drink 2 liters of water per day. She is voiding 2-3 times per night. She notes if her baby wakes her up she will then have to go. She also had BV and antibiotics really helped with that. Treatment Goals Patient/Caregiver Treatment goals include improving pelvic floor strength Goals , improving her ability to void, and decreasing bowel urgency and flattulance PT-OP-C Subjective Start: 06/23/24 08:33 Freq: Status: Active Protocol: Document 09/01/24 15:28 [facility] (Rec: 09/01/24 16:22 [facility] [id number]) OP-PT Subjective Patient Comments Patient Comments fecal urgency better able to control, she did start her period and she is on a 45 day cycle PT-OP-I Pelvic Floor Start: 06/23/24 08:33 Freq: Status: Active Protocol: Document 06/23/24 14:30 [facility] (Rec: 06/23/24 16:36 [facility] [id number]) Pelvic Floor Assessment Urine Pelvic Floor Surgery No: 3A perineal tear with childbirth Urinary Symptoms Urge Sensation,Incomplete Emptying Bowel Bowel Surgery No: 3A perineal tear Bowel Symptoms Fecal Leakage,Uncontrolled Flatulence Other Bowel Symptoms bowel urgency with difficulty holding a bowel movement Pelvic Clock Pelvic Clock 12-3 Atrophy Pelvic Clock 3-6 Atrophy Pelvic Clock 6-9 Atrophy Pelvic Clock 9-12 Atrophy Perineal Descent Resting Present Bearing Present Contraction Ability Voluntary Weak Contraction Voluntary Relaxation Weak Manual Muscle 2 Testing Left Manual Muscle 2 Testing Right Manual Muscle 2 Testing Anterior Manual Muscle 2 Testing Posterior Muscle Endurance ( 2 Seconds) Comments Pelvic Floor tenderness at the left side of the perineum and Comments tenderness over the left transverse perineal musculature, scar tissue tightness at the perineum with visible gapping PT-OP-Q Treatments Start: 06/23/24 08:33 Freq: Status: Active Protocol: Document 09/01/24 15:28 [facility] (Rec: 09/01/24 16:22 [facility] [id number]) Therapeutic Exercises Supine Exercises supine march Reps/Minutes x 5 reps each side templates for coordination and pelvic floor eccentric control Reps/Minutes x 5 minutes Other Exercises quadruped opp arm lift Reps/Minutes x 10 reps Comments pain on the right side uadruped rock backs Reps/Minutes 10 reps cat cow Reps/Minutes x 10 reps quaduped TA Reps/Minutes x 5 reps holding 10 seconds PT-OP-R Modalities Start: 06/23/24 08:33 Freq: Status: Active Protocol: Document 07/30/24 09:45 [facility] (Rec: 07/30/24 10:51 [facility] [id number]) Ultrasound Therapy Treatment over the perineum and left transverse perineum Patient Position Supine Coupling Medium Ultrasound Gel Applicator Size (cm2 2 ) Frequency Setting ( 1 mHz) Mode Setting Continuous Duty Cycle 100% Intensity Setting (w 1.3 /cm2) Comments good tolerance for ultrasound x 8 min PT-OP-T Assessment and Plan Start: 06/23/24 08:33 Freq: Status: Active Protocol: Document 09/01/24 15:28 [facility] (Rec: 09/01/24 16:22 [facility] [id number]) Physical Therapy Assessment Goals 3 Impairment Decreased pelvic floor endurance Short Term Goal (STG Sidra is able to sustain a pelvic floor contraction ) in supine x 10 seconds goal met STG Duration 5 weeks Care Home Goal (LTG) Sidra is able to sustain a pelvic floor contraction in sitting x 5 seconds or better goal not yet met LTG Duration 12 weeks 2 Impairment inabilty to fully empty the bladder with urinary and fecal urgency Short Term Goal (STG Sidra is educated on toileting strategies to assist ) with fully emptying her bladder goal met STG Duration 4 weeks Care Home Goal (LTG) Sidra reports improved ability to void and she is able to increase her times between voids to 2 hours, she notes a overall decrease in fecal urgency good progress pt is now waking up 1 time to void, she hasn't felt the fecal urgency as much but she does note she has always been near a toilet so hasn't had to test that much LTG Duration 12 weeks 1 Impairment pelvic floor weakness Video Arcade Manager Goal (LTG) Sidra presents with improved strength of the pelvic floor by at least 1 muscle grade for improved support of her pelvic organs good progress LTG Duration 12 weeks Assessment Summary Assessment Sidra is progressing well with PT and pelvic floor strength is improving. She is noting decreased urgency and fecal incontinence. Sidra did not have her pelvic floor sensor with her today as she is menstruating. We worked on core stabilization and stretching for her low back. I initiated TA with opp arm lifts and this was a challenge for her especially on the right side where her back is the tightest. She would benefit from continued PT working towards the above stated goals Physical Therapy Plan Frequency and Duration Frequency of 1x/Week Treatment Duration of 8 treatment (weeks) Plan of Care Start 09/01/24 Date Plan of Care End 10/27/24 Date Therapeutic Interventions Therapeutic Home Exercise Program,Manual Therapy,Neuromuscular Re- Interventions education,Patient/Caregiver Education,Soft Tissue Mobilization,Therapeutic Exercises Modalities Biofeedback,Ultrasound Next Visit Focus/Plan Next Visit Plan continue progressing core strength and pelvic floor strength adding in dynamic stability exercises
--- NOTE | 2024-09-01 16:23 | PT.OPPOC ---
Physical, Occupational & Speech Therapy At [facility] Current Diagnoses Pelvic muscle wasting (09/01/24) Third degree perineal laceration during delivery, unspecified (09/01/24) Encounter for full-term uncomplicated delivery (09/01/24) Fecal urgency (09/01/24) Feeling of incomplete bladder emptying (09/01/24) Visit Care Team Role Provider Type Julia Gonzalez PA-C Family Provider Advanced Rn Transitional Primary Care Provider Specialty: Medical Address: [address] [place] [address], [id number] Email: Ernesto Lozano MD Attending Provider Non-Staff Referring Provider Specialty: PRESS OPERATOR MEAT Address: [address] [place] [address], [id number] Email: Plan Of Care PT-OP-B Current Condition Start: 06/23/24 08:33 Freq: Status: Active Protocol: Document 06/23/24 14:30 [facility] (Rec: 06/23/24 14:48 [facility] [id number]) Current Condition History of Current Condition Onset Date With childbirth 03/23/24 Current Complaints 3rd degree tear, difficulty fully voiding, bowel urgency and flatulence History of Current Since giving she feels like she isn't able to Condition fully void, she is noting frequency of voiding and its just a trickle. She notes with her bowels she has urgency and when she needs to have a bowel movement she needs to go right then. She also reports a great amount of uncontrolled flatulence During labor she had a catheter for the epidural, afterwards she could not void. 7 hours later she woke up with pressure and pain so she needed a spot catheter to void. Sidra also reports she did hemorrhage after giving but did not require a blood transfusion. She notes her stool consistency changes from diarrhea to constipation. She is no longer taking laxatives' but is taking Metamucil. She tries to drink 2 liters of water per day. She is voiding 2-3 times per night. She notes if her baby wakes her up she will then have to go. She also had BV and antibiotics really helped with that. Treatment Goals Patient/Caregiver Treatment goals include improving pelvic floor strength Goals , improving her ability to void, and decreasing bowel urgency and flattulance PT-OP-T Assessment and Plan Start: 06/23/24 08:33 Freq: Status: Active Protocol: Document 09/01/24 15:28 [facility] (Rec: 09/01/24 16:22 [facility] [id number]) Physical Therapy Assessment Goals 3 Impairment Decreased pelvic floor endurance Short Term Goal (STG Sidra is able to sustain a pelvic floor contraction ) in supine x 10 seconds goal met STG Duration 5 weeks Senior Care Goal (LTG) Sidra is able to sustain a pelvic floor contraction in sitting x 5 seconds or better goal not yet met LTG Duration 12 weeks 2 Impairment inability to fully empty the bladder with urinary and fecal urgency Short Term Goal (STG Sidra is educated on toileting strategies to assist ) with fully emptying her bladder goal met STG Duration 4 weeks Senior Care Goal (LTG) Sidra reports improved ability to void and she is able to increase her times between voids to 2 hours, she notes a overall decrease in fecal urgency good progress pt is now waking up 1 time to void, she hasn't felt the fecal urgency as much but she does note she has always been near a toilet so hasn't had to test that much LTG Duration 12 weeks 1 Impairment pelvic floor weakness Song Plugger Goal (LTG) Sidra presents with improved strength of the pelvic floor by at least 1 muscle grade for improved support of her pelvic organs good progress LTG Duration 12 weeks Assessment Summary Assessment Sidra is progressing well with PT and pelvic floor strength is improving. She is noting decreased urgency and fecal incontinence. Sidra did not have her pelvic floor sensor with her today as she is menstruating. We worked on core stabilization and stretching for her low back. I initiated TA with opp arm lifts and this was a challenge for her especially on the right side where her back is the tightest. She would benefit from continued PT working towards the above stated goals Physical Therapy Plan Frequency and Duration Frequency of 1x/Week Treatment Duration of 8 treatment (weeks) Plan of Care Start 09/01/24 Date Plan of Care End 10/27/24 Date Therapeutic Interventions Therapeutic Home Exercise Program,Manual Therapy,Neuromuscular Re- Interventions education,Patient/Caregiver Education,Soft Tissue Mobilization,Therapeutic Exercises Modalities Biofeedback,Ultrasound Next Visit Focus/Plan Next Visit Plan continue progressing core strength and pelvic floor strength adding in dynamic stability exercises Plan of Care Dates Plan of Care Start Date 09/01/24 Plan of Care End Date 10/27/24 Electronically Signed by: Esme Bruce, STACEY 09/01/24 [id number] If you are in agreement with this Plan of Care, please return a signed and dated copy. I have reviewed this Plan of Care and certify that the skilled therapy services above are required to meet the patient?s needs. Physician Signature Date Printed Name and Credentials Clinical Instructor Signature Printed Name and Credentials
--- NOTE | 2024-10-06 17:10 | PT.OTN ---
Current Diagnoses Pelvic muscle wasting (10/06/24) Third degree perineal laceration during delivery, unspecified (10/06/24) Encounter for full-term uncomplicated delivery (10/06/24) Fecal urgency (10/06/24) Feeling of incomplete bladder emptying (10/06/24) Physical Therapy Treatment Note PT OP: Pelvic Health Start: 09/24/24 08:26 Freq: Status: Active Protocol: Document 10/06/24 12:59 [facility] (Rec: 10/06/24 13:08 [facility] [id number]) Out-Patient Physical Therapy Visit Information Visit Information Visit Type Treatment Note Visit Start Time 13:00 Visit Stop Time 13:45 Visit Number 8 OP-PT Subjective Patient Comments Patient Comments pt had to cx last visit due to a migrane, she is having improvement overall with pelvic floor She does feel that maybe she isn't fully emptying at night when she gets up with her baby Sidra notes she can hold longer now prior to voiding up to 2.5 hours. Patient Reported Improving Progress Therapeutic Exercises Supine Exercises hooklying clam shell with resistance Reps/Minutes x 10 reps holding 5 seconds pelvic floor isolations Supine Exercise Name able to relax to baseline Reps/Minutes 10 reps holding 10 sec and resting 10 sec Comments 11.8 41.3 pelvic floor with adductor assist Reps/Minutes 10 reps holding 10 seconds and relaxing 10 sec Sitting Exercises seated pelvic floor on exercise ball Sitting Exercise FOR HEP Name Comments goal to work on 5-10 second hold in sitting for home Self-Care/Home Management Treatment Education Patient Education 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, discussion of high low desk and standing during meetings, avoiding crossing legs at computer desk Sidra was instructed to add in seated pelvic floor isolations on the ball Physical Therapy Assessment Goals 3 Impairment Decreased pelvic floor endurance Short Term Goal (STG Sidra is able to sustain a pelvic floor contraction ) in supine x 10 seconds goal met STG Duration 5 weeks Residential Goal (LTG) Sidra is able to sustain a pelvic floor contraction in sitting x 5 seconds or better goal not yet met LTG Duration 12 weeks 2 Impairment inabilty to fully empty the bladder with urinary and fecal urgency Short Term Goal (STG Sidra is educated on toileting strategies to assist ) with fully emptying her bladder goal met STG Duration 4 weeks Residential Goal (LTG) Sidra reports improved ability to void and she is able to increase her times between voids to 2 hours, she notes a overall decrease in fecal urgency good progress pt is now waking up 1 time to void, she hasn't felt the fecal urgency as much but she does note she has always been near a toilet so hasn't had to test that much LTG Duration 12 weeks 1 Impairment pelvic floor weakness Residential Goal (LTG) Sidra presents with improved strength of the pelvic floor by at least 1 muscle grade for improved support of her pelvic organs good progress LTG Duration 12 weeks Assessment Summary Assessment Sidra is doing better overall and her pelvic floor max contraction has increased a good amount since last visit. She has also increased her average hold 2 uv higher than last visit. Resting tone was at baseline today. We discussed starting to work on pelvic floor contractions in sitting as she is sitting on her ball for work. We also talked about trying to do some standing with high low desk for work when she has meetings so she can stretch her hips. Sidra notes she has started to feel tight in the lateral thighs ( ITB region) since returning to work. Physical Therapy Plan Frequency and Duration Frequency of 1x/Week Treatment Duration of 8 treatment (weeks) Plan of Care Start 09/01/24 Date Plan of Care End 10/27/24 Date Next Visit Focus/Plan Next Note Type Treatment Note Next Visit Plan review stretches for the hips next visit and instruct in a ITB stretch, review HEP and check in with how Sidra is doing with her pelvic floor in sitting position
--- NOTE | 2024-10-29 16:00 | PT.OPPOC ---
Physical, Occupational & Speech Therapy At Current Diagnoses Pelvic muscle wasting (10/29/24) Third degree perineal laceration during delivery, unspecified (10/29/24) Encounter for full-term uncomplicated delivery (10/29/24) Fecal urgency (10/29/24) Feeling of incomplete bladder emptying (10/29/24) Visit Care Team Role Provider Type Julia Gonzalez PA-C Family Provider Advanced Cargo Handler Primary Care Provider Specialty: Medical Address: [address] [place] [address], [id number] Email: Ernesto Lozano MD Attending Provider Non-Staff Referring Provider Specialty: NATURAL RESOURCE SPECIALIST Address: [address] [place] [address], [id number] Email: Plan Of Care PT OP: Pelvic Health Start: 09/24/24 08:26 Freq: Status: Active Protocol: Document 10/29/24 17:16 [facility] (Rec: 10/29/24 17:19 [facility] [id number]) Out-Patient Physical Therapy Visit Information Visit Information Visit Type Progress Note Visit Note 03/04 Visit Start Time 15:15 Visit Stop Time 16:00 Visit Number 9 OP-PT Subjective Patient Comments Patient Comments Sidra reports her urgency has gotten much better and she was able to go on a road trip without as many bathroom stops. She was able to have intercourse with out pain. She reports her tissues now are irritated after traveling and intercourse. She is working on getting a prescription filled for vaginal estrogen Therapeutic Exercises Supine Exercises hooklying clam shell with resistance Reps/Minutes x 10 reps holding 5 seconds pelvic floor isolations Supine Exercise Name able to relax to baseline Reps/Minutes 10 reps holding 10 sec and resting 10 sec Comments 11.8 41.3 pelvic floor with adductor assist Reps/Minutes 10 reps holding 10 seconds and relaxing 10 sec Self-Care/Home Management Treatment Education Other Education time was spent on education on vaginal estrogen cream for vaginal tissue health Physical Therapy Assessment Goals 3 Impairment Decreased pelvic floor endurance Short Term Goal (STG Sidra is able to sustain a pelvic floor contraction ) in supine x 10 seconds goal met STG Duration 5 weeks Director Hardware Goal (LTG) Sidra is able to sustain a pelvic floor contraction in sitting x 5 seconds or better good progress LTG Duration 12 weeks 2 Impairment inabilty to fully empty the bladder with urinary and fecal urgency Short Term Goal (STG Sidra is educated on toileting strategies to assist ) with fully emptying her bladder goal met STG Duration 4 weeks Director Hardware Goal (LTG) Sidra reports improved ability to void and she is able to increase her times between voids to 2 hours, she notes a overall decrease in fecal urgency urinary urgency is no longer a problem, Sidra still has bowel urgency at times pt is now waking up 1 time to void, she hasn't felt the fecal urgency as much but she does note she has always been near a toilet so hasn't had to test that much LTG Duration 12 weeks 1 Impairment pelvic floor weakness Director Hardware Goal (LTG) Sidra presents with improved strength of the pelvic floor by at least 1 muscle grade for improved support of her pelvic organs good progress LTG Duration 12 weeks Assessment Summary Assessment Sidra is showing good overall progress with pelvic floor and core post strengthening. She is noting decreased urinary urgency and frequency and leakage has been reduced. Pain with intercourse is better. Her vaginal tissue does still get irritated and she has a prescription she is getting filled for vaginal estrogen. She does still at times report she is not fully able to empty her bowels and I feel she would benefit from continued pelvic floor and core strengthening. Physical Therapy Plan Frequency and Duration Frequency of 1x/Week Treatment Duration of 8 treatment (weeks) Plan of Care Start 10/29/24 Date Plan of Care End 12/24/24 Date Next Visit Focus/Plan Next Note Type Treatment Note Next Visit Plan review stretches for the hips next visit and instruct in a ITB stretch, review HEP and check in with how Sidra is doing with her pelvic floor in sitting position Plan of Care Dates Plan of Care Start Date 10/29/24 Plan of Care End Date 12/24/24 Electronically Signed by: Esme Bruce, PT 11/03/24 [id number] If you are in agreement with this Plan of Care, please return a signed and dated copy. I have reviewed this Plan of Care and certify that the skilled therapy services above are required to meet the patient?s needs. Physician Signature Date Printed Name and Credentials Clinical Instructor Signature Printed Name and Credentials
--- NOTE | 2024-12-15 16:52 | PT.OPDS ---
Current Diagnoses Pelvic muscle wasting (12/15/24) Third degree perineal laceration during delivery, unspecified (12/15/24) Encounter for full-term uncomplicated delivery (12/15/24) Fecal urgency (12/15/24) Feeling of incomplete bladder emptying (12/15/24) Visit Care Team Role Provider Type Julia Gonzalez PA-C Family Provider Advanced Pharmacist In Charge Owner Primary Care Provider Specialty: Medical Address: [address] [place] [address], [place], [address] Email: Ernesto Lozano MD Attending Provider Non-Staff Referring Provider Specialty: MEDICAL CARE ADMINISTRATOR Address: [address] [place] [address], [id number] Email: Visit Number Visit Number 10 Discharge Summary PT OP: Pelvic Health Start: 09/24/24 08:26 Freq: Status: Active Protocol: Document 12/15/24 10:46 [facility] (Rec: 12/15/24 10:52 [facility] [id number]) Out-Patient Physical Therapy Visit Information Visit Information Visit Type Treatment Note Visit Start Time 10:45 Visit Stop Time 11:30 Visit Number 10 OP-PT Subjective Patient Comments Patient Comments pt reports she went on a long road trip to [facility] and she didn't have any problems with her bladder. She doesn't have the estrogen on board yet but she does feel like she is doing pretty so far with her tissue. She is not experiencing pain with intercourse Therapeutic Exercises Supine Exercises templates for coordination and pelvic floor eccentric control Reps/Minutes x 5 minutes pelvic floor isolations Supine Exercise Name able to relax to baseline Reps/Minutes 10 reps holding 10 sec and resting 10 sec Comments average 19.3 and max 37 pelvic floor with adductor assist Reps/Minutes 10 reps holding 10 seconds and relaxing 10 sec Sidelying Exercises sidelying clam shells Reps/Minutes 2 x 10 each side Physical Therapy Assessment Goals 3 Impairment Decreased pelvic floor endurance Short Term Goal (STG Sidra is able to sustain a pelvic floor contraction ) in supine x 10 seconds goal met STG Duration 5 weeks Mcfp Goal (LTG) Sidra is able to sustain a pelvic floor contraction in sitting x 5 seconds or better good progress LTG Duration 12 weeks 2 Impairment inabilty to fully empty the bladder with urinary and fecal urgency Short Term Goal (STG Sidra is educated on toileting strategies to assist ) with fully emptying her bladder goal met STG Duration 4 weeks Mcfp Goal (LTG) Sidra reports improved ability to void and she is able to increase her times between voids to 2 hours, she notes a overall decrease in fecal urgency excellent progress pt is now waking up 1 time to void, she hasn't felt the fecal urgency as much but she does note she has always been near a toilet so hasn't had to test that much LTG Duration 12 weeks 1 Impairment pelvic floor weakness Financial Internship Goal (LTG) Sidra presents with improved strength of the pelvic floor by at least 1 muscle grade for improved support of her pelvic organs goal met LTG Duration 12 weeks Assessment Summary Assessment Sidra is showing good overall progress with pelvic floor and core for her strengthening. She is no longer experiencing urinary leakage and urgency and also feels her vaginal tissue is doing better overall without pain with intercourse. At this point she has met her goals and will be discharged to a I [facility] Physical Therapy Plan Discharge Physical Therapy Discharge Reasons Goals Met Discharge Comments Sidra will be discharged to a I [facility] at this time
== END 2024-12-16 10:55 | disposition home or self-care (01) ==
LOC: PHYS 10:45
PROVIDERS: Family Provider Physician Assistant; PCP Physician Assistant; Referring Provider Student in an Organized Health Care Education/Training Program; Visit Provider Student in an Organized Health Care Education/Training Program
DX: O80 Encounter for full-term uncomplicated delivery (principal); O70.20 Third degree perineal laceration during delivery, unspecified; N81.84 Pelvic muscle wasting; R39.14 Feeling of incomplete bladder emptying; R15.2 Fecal urgency
CPT/HCPCS: 97035; 97110; 97112; 97140; 97162; 97535